=== PATIENT | female | born 1950 | race Caucasian/White ===

== ENCOUNTER 2020-08-09 09:40 | Emergency (ER) | payer MEDICARE, OTHER, SELFPAY ==
--- NOTE | ~2020-08-09 | US_ITS ---
EXAMINATION: US venous doppler [facility] DATE: 08/09/2020 11:05 INDICATION: Bilateral lower limb swelling TECHNIQUE: Malik scale images without and with compression and Doppler images of the bilateral lower e xtremity veins were obtained. COMPARISON: None FINDINGS: The right common femoral vein, profunda femoral vein, femoral vein, popliteal vein, peroneal trunk, p osterior tibial veins, and greater saphenous vein are patent. The left common femoral vein, profunda femoral vein, femoral vein, popliteal vein, peroneal trunk, po sterior tibial veins, and greater saphenous vein are patent. IMPRESSION: 1. Patent bilateral lower extremity veins. No evidence of deep venous thrombosis. Reviewed, dictated and finalized at location A. PREPARER IMPRESSION: 1. Patent bilateral lower extremity veins. No evidence of deep venous thrombosi s.
--- NOTE | ~2020-08-09 | XR_ITS ---
EXAMINATION: XR chest 1V INDICATION: Shortness of breath TECHNIQUE: AP view of the chest is obtained. COMPARISON: None available FINDINGS: There is scarring in the lung apices. Linear subpleural opacities are present in the lower lung zones. There is no pleural effusion or pneumothorax. The cardiomediastinal silhouette is normal. Lumbar levoscoliosis is noted. IMPRESSION: 1. Atelectasis versus mild pulmonary edema of the lung bases. Reviewed, dictated and finalized at location A. RUMENT CALIBRATOR
--- NOTE | ~2020-08-09 | CT_ITS ---
EXAMINATION: CTA chest PE protocol DATE: 08/09/2020 12:16 INDICATION: Elevated d-dimer. Right chest pain. TECHNIQUE: Computed tomography angiography (CTA) of the chest was performed with 100 mL Omnipaque-350 intravenous contrast timed to evaluate the pulmonary arteries. Coronal maximum intensity projection 3D-reconstructions were created by the technologist. Automated exposure control and iterative reconst ruction technique were employed. Exam dose: 338.19 mGy-cm total exam DLP. COMPARISON: August 09, 2020 AP chest FINDINGS: There is diagnostic contrast enhancement of the pulmonary arteries. There is no evidence of pulmonary embolism. Emphysematous changes are noted. There is prominence of the pulmonary interstitial tissues and interl obular septa particularly in the apices and lower lobes which may be due to chronic interstitial fibr otic changes versus less likely interstitial pneumonitis or edema. No pulmonary consolidation. No hilar or mediastinal mass lesion or lymphadenopathy. Normal heart size. No thoracic aortic aneurys m or dissection. No pericardial or pleural effusion. Normal morphology of the adrenal glands. IMPRESSION: No evidence of pulmonary embolism Reviewed, dictated and finalized at Location A. Reviewed, dictated and finalized at location B. PACKER
[2020-08-09 09:50] VITALS: BP 153/68; PULSE 109; RESP 20; TEMP 37.2; O2SAT 99
[2020-08-09 10:01] VITALS: BP 139/67; PULSE 108; RESP 22; O2SAT 97
--- NOTE | 2020-08-09 10:14 | ECG_ITS ---
Measurements Intervals [place] Rate: 102 P: 51 [place]: 133 QRS: 43 QRSD: 78 T: 61 QT: 293 QTc: 383 Interpretive Statements SINUS TACHYCARDIA BASELINE ARTIFACT- I, II, III, AVR, AVL, V6 BORDERLINE ECG Electronically Signed On 08-09-2020 10:31:13 [employer]IPPING ROOM HELPER by Vick Delaney D.O.
--- NOTE | 2020-08-09 10:26 | ED.GENADULT ---
HPI - General Adult General Chief complaint: Extremity Problem,Nontraumatic Stated complaint: swollen feet Time Seen by Provider: 08/09/20 09:44 Source: patient Mode of arrival: ambulatory Limitations: no limitations History of Present Illness HPI narrative: This patient is a 69 year old female who presents from home for evaluation of bilateral feet swelling and feet pain. This pain and swelling has been present for several weeks. She has been taking a water pill for 3 weeks. She has not been taking for 2 days because she states it is does not work. She states she has been unable to sleep due to pain in her feet. She denies chest pain, orthopnea. She reports chronic shortness of breath due to asthma. She thinks she has been having fever but she has been unable to check the temperature. She also reports right flank pain that she thinks the medication has been causing. She is urinating frequently but she states it is a small amount at a time. She denies history of CHF. Related Data Home Medications Medication Instructions Recorded Confirmed acetaminophen 500 mg PO Q6H PRN 08/09/20 aspirin [Adult Aspirin EC Low 08/09/20 Strength] atorvastatin 08/09/20 fluticasone propion-salmeterol INHALATION 08/09/20 [Advair Diskus] levothyroxine 25 mcg PO 08/09/20 metformin 500 mg PO BID 08/09/20 montelukast 10 mg PO DAILY 08/09/20 Allergies Allergy/AdvReac Type Severity Reaction Status Date / Time No Known Allergies Allergy Mild Verified 08/09/20 10:02 Review of Systems Review of Systems: All systems reviewed & are unremarkable except as noted in HPI and below Constitutional: Constitutional: Reports fever(s) (subjective) Cardiovascular: Cardiovascular: Denies chest pain Respiratory: Respiratory: Denies cough and Denies dyspnea Gastrointestinal: Gastrointestinal: Reports abdominal pain, Denies nausea and Denies vomiting Genitourinary: Genitourinary: Reports flank pain Musculoskeletal: Musculoskeletal: Reports muscle cramps Comments: feet pain PMFSH Past Medical History Medical History (Updated 08/09/20 @ 13:18 by Mitra Dunne MD) Diabetes mellitus Hyperlipidemia Hypothyroidism Surgical History Surgical History (Updated 08/09/20 @ 10:29 by Mitra Dunne MD) Hx of cholecystectomy Social History Social History (Updated 08/09/20 @ 10:29 by Mitra Dunne MD) Smoking status: Never smoker Exam Const: General: no acute distress and alert Orientation/consciousness: patient oriented x3 HENMT: Ears: TM's normal bilaterally Mouth: Yes moist mucous membranes Throat: posterior oropharynx normal, tonsils normal, uvula midline, uvula not displaced and no uvular edema Eyes: EOM: EOMs intact bilaterally Chest: Chest palpation & inspection: normal inspection of the chest Resp: Effort & Inspection: normal respiratory effort and no retractions Auscultation: clear to auscultation bilaterally Cardio: Rate: regular rate Rhythm: regular rhythm Heart sounds: no murmurs GI: GI Palp: Yes Soft to palpation, No Tenderness to palpation present (GI) and No Guarding due to palpation present (GI) Auscultation: normal bowel sounds : General: Yes no CVA tenderness Skin: General skin exam: normal color Rashes: no rashes Neuro: General: patient oriented x3, moves all extremities and CN's II-XI intact bilaterally Extrem: General: edema bilateral Psych: Mental Status: mental status grossly normal Affect: normal affect Course Reevaluation(s) Reevaluation #1: I Discussed with patient that CT was negative for PE for show chronic lung disease. She will be started on antibiotics for aUTI. I also discussed labs show abnormality to LFTs so she will need to follow up with PCP. no DVT, CHF unlikely. I Discussed management of leg edema. Date: 08/09/20 Time: 13:13 Vital Signs Vital signs: Vital Signs Temperature 98.9 F 08/09/20 09:50 Pulse Rate 109 H 08/09/20 09:50 Respir
[2020-08-09 10:37] LABS: Basophils Percent Auto 0.3 % (0.2-1.2); Eosinophils Absolute Auto 0.1 K/mm3 (0-0.3); Eosinophils Percent Auto 1.1 % (0-4.4); Hematocrit 31.8 % (37.0-47.0); Hemoglobin 9.9 g/dL (12.0-15.0); Immature Granulocyte Absolute 0.09 K/mm3 (0.00-0.031); Immature Granulocyte Percent A 0.7 % (0-0.5); Lymphocytes Absolute Auto 1.12 K/mm3 (0.9-3.2); Lymphocytes Percent Auto 8.8 % (18.3-44.2); Mean Corpuscular HGB Conc 31.1 g/dl (32-36); Mean Corpuscular Hemoglobin 28.7 pg (26-34); Mean Corpuscular Volume 92.2 fl (80-100); Mean Platelet Volume 8.6 fl (7.4-10.4); Monocytes Absolute Auto 0.7 K/mm3 (0.1-0.6); Monocytes Percent Auto 5.2 % (2.6-8.5); Neutrophils Absolute Auto 10.6 K/mm3 (1.3-6.7); Neutrophils Percent Auto 83.9 % (45.5-73.1); Platelet Count Result 427 k/mm3 (150-375); Red Blood Count 3.45 M/mm3 (4.2-5.4); Red Cell Distribution Width 13.5 % (11.5-14.5); White Blood Count 12.7 K/mm3 (4.5-10.0)
[2020-08-09 10:51] LABS: Alanine Aminotransferase 58 U/L (4-35); Albumin Level 3.1 g/dL (3.5-5.1); Alkaline Phosphatase 1280 U/L (38-126); Anion Gap 4 mmol/L (8-16); Aspartate Amino Transferase 117 U/L (14-36); Bilirubin,Total 0.8 mg/dL (0.2-1.3); Blood Urea Nitrogen 14 mg/dL (7-17); Calcium 8.7 mg/dL (8.4-10.2); Carbon Dioxide 33 mmol/L (22-30); Chloride 96 mmol/L (98-107); Estimated CRCL calculation 79 ml/min; Estimated Glomerular Filt Rate > 60; Glucose 182 mg/dL (65-105); Lactic Acid Reflex 1.8 mmol/L (0.7-2.1); Magnesium 1.3 mg/dL (1.6-2.3); Potassium 4.9 mmol/L (3.4-5.0); Sodium 133 mmol/L (137-145)
[2020-08-09 11:03] LABS: NT Pro B Type Natriuretic Pept 292 PG/ML (5-100); Troponin I < 0.012 ng/mL (0.000-0.034)
[2020-08-09 11:19] VITALS: BP 144/70; RESP 23; O2SAT 98
[2020-08-09 11:26] LABS: Prothrombin Time 13.7 Seconds (11.1-14.7)
[2020-08-09 11:27] LABS: Partial Thromboplastin Time 32.6 SECONDS (22.3-36.8)
[2020-08-09 11:48] LABS: Add Urine Microscopic? YES; Appearance Urine Clear (Clear); Bilirubin Urine Negative (Negative); Blood Urine 2+ (Negative); Color Urine Yellow (Yellow); Glucose Urine UA 1+ mg/dL (Negative); Ketones Urine Negative (Negative); Leukocyte Esterase Ur 2+ LEU/UL (Negative); Mucus Urine Few /lpf; Nitrate Urine Negative (Negative); Protein Urine 1+ mg/dL (Negative); Specific Grav Ur 1.028 (1.001-1.035); Squamous Epithelial Cell Urine Moderate /hpf (Few); WBC Urine 21-30 /hpf
[2020-08-09 12:30] VITALS: BP 141/87; PULSE 105; RESP 20; O2SAT 98
[2020-08-09 13:00] VITALS: BP 153/73; PULSE 108; RESP 28; O2SAT 97
[2020-08-09] MEDS: FUROSEMIDE INJ 40 MG/4 ML VIAL IV PUSH (13:48)
[2020-08-09] MEDS: MAGNESIUM OXIDE 200 MG TABLET PO (13:48)
[2020-08-09 13:55] VITALS: BP 155/66; PULSE 106; RESP 16; O2SAT 97
== END 2020-08-09 13:55 | disposition home or self-care (01) ==
PROVIDERS: Emergency Provider General Practice; PCP Internal Medicine
DX: R60.0 Localized edema (principal); N39.0 Urinary tract infection, site not specified; J02.9 Acute pharyngitis, unspecified; R74.01 Elevation of levels of liver transaminase levels; E11.9 Type 2 diabetes mellitus without complications; E78.5 Hyperlipidemia, unspecified; E03.9 Hypothyroidism, unspecified; J45.909 Unspecified asthma, uncomplicated; Z79.84 Long term (current) use of oral hypoglycemic drugs; Z79.82 Long term (current) use of aspirin; R06.02 Shortness of breath
CPT/HCPCS: 71045; 71275; 80053; 81001; 83605; 83735; 83880; 84484; 85025; 85380; 85610; 85730; 87081; 87086; 87088; 87880; 93005; 93970; 96374; 99284; A9270; J1940; Q9967